=== PATIENT | male | born 1975 | race Caucasian/White ===

== ENCOUNTER 2024-12-24 15:01 | Outpatient (CLI) | payer OTHER, SELFPAY | END 2024-12-24 15:02 | disposition home or self-care (01) | PROVIDERS: Visit Provider Family Medicine | DX: Z00.00 Encounter for general adult medical examination without abnormal findings (principal); R10.9 Unspecified abdominal pain; Z12.5 Encounter for screening for malignant neoplasm of prostate; Z13.6 Encounter for screening for cardiovascular disorders | CPT/HCPCS: 80053; 80061; 86140; G0103 ==

== ENCOUNTER 2024-12-25 15:18 | Outpatient (CLI) | payer OTHER, SELFPAY ==
--- NOTE | 2024-12-25 16:00 | CRLHL7_ITS ---
For Patients: As a result of the Century Cures Act, medical imaging exams and procedure reports are released immediately into your electronic medical record. You may view this report before your referring provider. If you have questions, please contact your health care provider. INDICATION: RLQ AND LOWER ABD PAIN X 2 MONTHS. CRAMPY FEELING TECHNIQUE: CT abdomen and pelvis without contrast. COMPARISON: None available. FINDINGS: Evaluation of solid organs is limited secondary to lack of IV contrast administration. Liver: Calcified granuloma at the right hepatic dome. No suspicious focal hepatic lesion. Gallbladder and bile ducts: Unremarkable. Pancreas: Unremarkable. Spleen: Unremarkable. Adrenal glands: Unremarkable. Kidneys: No renal calculi or hydronephrosis bilaterally. Simple appearing 2.2 cm cyst in the right kidney. Retroperitoneum: No lymphadenopathy. Bowel and mesentery: Bowel is not obstructed. No significant ascites. Significant redundancy of the sigmoid colon. Large fecal burden is present throughout the colon. Normal appendix. Bladder: Mild circumferential bladder wall thickening, may be secondary to underdistention. Reproductive organs: No prostatomegaly. Pelvic lymph nodes: No lymphadenopathy. Vessels: Few scattered atherosclerotic calcifications. Abdominal wall: Small fat filled umbilical hernia. Bones: Multilevel degenerative changes of the spine. No suspicious/aggressive focal osseous lesion. Lower chest: No focal consolidation. IMPRESSION: 1. Normal appendix. Large fecal burden is present throughout the colon, suggestive of constipation. 2. Mild circumferential bladder wall thickening, may be secondary to underdistention. Recommend correlation with urinalysis. Please note that all CT scans at this facility use dose modulation, iterative reconstruction, and/or weight-based dosing when appropriate to reduce radiation dose to as low as reasonably achievable. Dictated by Aaron Penn MD @ 12/25/2024 4:56:50 PM (Electronically Signed)
== END 2024-12-25 15:19 | disposition home or self-care (01) ==
LOC: CT 15:18
PROVIDERS: PCP Family Medicine; Visit Provider Family Medicine
DX: R10.31 Right lower quadrant pain (principal)
CPT/HCPCS: 74176